=== PATIENT | female | born 1955 | race Caucasian/White ===

== ENCOUNTER 2016-08-13 21:41 | Emergency (ER) | payer MEDICARE, MEDICAID ==
[2016-08-13 22:01] VITALS: BP 135/63; PULSE 93; TEMP 97.9; BMI 28.0
--- NOTE | 2016-08-14 00:17 | EDPRACDOC ---
- General Information Information Source: Patient Home Medications: Home Medications Alprazolam [Xanax] 1 mg PO TID 03/17/13 Esomeprazole Mag Trihydrate [Nexium] 40 mg PO BID 03/17/13 Ropinirole HCl [Requip] 1 mg PO BID 03/17/13 Tiotropium [Spiriva Handihaler] 1 puff INH DAILY 03/17/13 Duloxetine [Cymbalta] 60 mg PO BID 08/28/13 Albuterol Sulfate [Proair Hfa] 1 - 2 puff INH Q4H PRN 04/30/14 Fluticasone Propionate [Flonase] 2 spray GENARO BID 04/30/14 Tramadol HCl [Ultram] 50 mg PO TID 07/03/14 Cyclobenzaprine HCl [Flexeril] 10 mg PO TID #10 tablet 05/19/16 Lisinopril [Zestril] 2.5 mg PO DAILY 05/19/16 Pentazocine HCl/Naloxone HCl [Talwin Nx Tablet] 1 each PO Q6 #10 tablet Pregabalin [Lyrica] 200 mg PO DAILY 05/19/16 Allergies/Adverse Reactions: Allergies Allergy/AdvReac Type Severity Reaction Status Date / Time prednisone [Prednisone] Allergy Unknown/See Verified 08/13/16 22:01 Comments Sulfa (Sulfonamide Allergy Unknown/See Verified 08/13/16 22:01 Antibiotics) Comments - History of Present Illness Onset: 2 DAYS HPI: PT PRESENTS TODAY WITH DOG SCRATCH TO RIGHT DORSAL FOREARM X 2 DAYS. WORRIED THAT ITS INFECTED. NO FEVER. - Tetanus Status Last Tetanus: No - Pain Pain Severity: None Bleeding: Reports: Controlled Associated Signs & Symptoms: Reports: Abrasion ED Past Medical History - History Reviewed Yes Nurses notes reviewed and agree except as marked - Patient Medical History Cardiac History: Reports: Hypertension Respiratory History: Reports: COPD GI/ History: Reports: Gastroesophageal Reflux Psychological History: Reports: Depression Additional Past Medical History: Fibromyalgia Surgical History: Reports: Cholecystectomy. Denies: Hysterectomy - Social Medical History Smoking Status: Heavy tobacco smoker (5 or more cigarettes/day or daily pipe/ cigar) EDM Review of Systems - Review of Systems ROS Negative Except as Marked: Yes All systems reviewed and were negative except as marked Constitutional: No Symptoms Reported Neurological: No Symptoms Reported Musculoskeletal: Forearm Integumentary: Wound - Physical Exam Constitutional: Alert (Awake), No apparent distress Oriented to: Time, Person, Place Last recorded Vital Signs: Last Vital Signs Temp 97.9 F 08/13/16 21:58 Pulse 93 08/13/16 21:58 Resp 20 08/13/16 21:58 BP 135/63 08/13/16 21:58 Pulse Ox 95 08/13/16 21:58 Oxygen Pulse Oxygen Saturation 95 O2 Device Room Air Oxygen Flow Rate Fraction of Inspired Oxygen ( FIO2) - HEENT Head: Normal Eye Exam: Normal Neck: Normal, Denies Pain, Midline - Respiratory/Cardiovascular Respiratory: Normal - CTA Cardiovascular: Normal - GI Palpation: Normal Tenderness: Non tender - Musculoskeletal Back: Normal Extremities: Other (NOTED IRREGULAR ABRASION TO RIGHT DORSAL FOREARM; ABOUT 2 CM TOTAL LENGTH; SCABBED OVER; LOCAL ERYTHEMA ONLY; NO SWELLING/DISCHARGE.) - Additional Information WOUND DRESSED WITH AVELYN AND NEOSPORIN. Decision Time to Discharge: 00:16 - Departure Disposition: Home Condition: Good Final Diagnosis: Abrasion Instructions: MRSA (Methicillin Resistant Staphylococcus Aureus) (ED) Education/Counseling Given To: Patient Education/Counseling Given Regarding: Diagnosis, Treatment, Follow Up Referrals: Josefina Reddy MD [Primary Care Provider] - One Week Additional Instructions: KEEP BANDAGE ON FOR 3 DAYS, THEN CHANGE
== END 2016-08-14 00:33 | disposition home or self-care (01) ==
LOC: ED 21:41
DX: S50.811A Abrasion of right forearm, initial encounter (principal); X58.XXXA Exposure to other specified factors, initial encounter; I10 Essential (primary) hypertension; J44.9 Chronic obstructive pulmonary disease, unspecified; K21.9 Gastro-esophageal reflux disease without esophagitis; F17.200 Nicotine dependence, unspecified, uncomplicated; Z79.899 Other long term (current) drug therapy
CPT/HCPCS: 99283

== ENCOUNTER 2016-08-29 19:45 | Emergency (ER) | payer MEDICARE, MEDICAID ==
[2016-08-29 19:51] VITALS: TEMP 98.3
[2016-08-29 20:01] VITALS: BMI 27.5
--- NOTE | 2016-08-29 20:46 | DIRPT ---
CLINICAL DATA: Back and neck pain EXAM: CERVICAL SPINE - COMPLETE 4+ VIEW COMPARISON: 04/30/2014 FINDINGS: Normal alignment of the cervical spine. The vertebral body heights are well preserved. Mild disc space narrowing and ventral spurring noted particularly at the C6-7 level. There is no fracture or dislocation identified. IMPRESSION: 1. Mild cervical spondylosis. 2. No acute findings. Electronically Signed By: Selene Santiago M.D. On: 08/29/2016 20:44
--- NOTE | 2016-08-29 20:47 | DIRPT ---
CLINICAL DATA: Posterior neck pain and thoracic back pain. Fall several months ago. EXAM: THORACIC SPINE 2 VIEWS COMPARISON: Lateral chest radiograph, 04/30/2014 FINDINGS: No fracture. No spondylolisthesis. Mild disc degenerative changes reflected by a loss of disc height and minor endplate osteophytes are noted along the mid and lower thoracic spine no bone lesion. Soft tissues are unremarkable. IMPRESSION: No fracture or acute finding. Mild degenerative changes. Electronically Signed By: Denys Yoon M.D. On: 08/29/2016 20:44
[2016-08-29] MEDS ORDERED: METHYLPREDNISOLONE 125 MG/2 ML VIAL IM ONE (21:05)
--- NOTE | 2016-08-29 21:10 | EDPRACDOC ---
- General Information Chief Complaint: Chest Wall Pain Stated Complaint: LEFT SHOULDER/ARM PAIN, CHEST CRAMPS Time Seen by Provider: 08/29/16 20:59 Information Source: Patient Mode Of Arrival: Car Home Medications: Home Medications Alprazolam [Xanax] 1 mg PO TID 03/17/13 Esomeprazole Mag Trihydrate [Nexium] 40 mg PO BID 03/17/13 Ropinirole HCl [Requip] 1 mg PO BID 03/17/13 Tiotropium [Spiriva Handihaler] 1 puff INH DAILY 03/17/13 Duloxetine [Cymbalta] 60 mg PO BID 08/28/13 Albuterol Sulfate [Proair Hfa] 1 - 2 puff INH Q4H PRN 04/30/14 Fluticasone Propionate [Flonase] 2 spray GENARO BID 04/30/14 Tramadol HCl [Ultram] 50 mg PO TID 07/03/14 Cyclobenzaprine HCl [Flexeril] 10 mg PO TID #10 tablet 05/19/16 Lisinopril [Zestril] 2.5 mg PO DAILY 05/19/16 Pentazocine HCl/Naloxone HCl [Talwin Nx Tablet] 1 each PO Q6 #10 tablet Pregabalin [Lyrica] 200 mg PO DAILY 05/19/16 Cyclobenzaprine HCl [Flexeril] 10 mg PO TID PRN #15 tablet 08/29/16 Hydrocodone Bit/Acetaminophen [Lortab 5/325] 1 tab PO Q4-6H PRN #15 tab Methylprednisolone [Medrol] 1 pack PO UNK #1 tab.ds.pk 08/29/16 Allergies/Adverse Reactions: Allergies Allergy/AdvReac Type Severity Reaction Status Date / Time prednisone [Prednisone] Allergy Unknown/See Verified 08/29/16 20:01 Comments Sulfa (Sulfonamide Allergy Unknown/See Verified 08/29/16 20:01 Antibiotics) Comments - History of Present Illness Onset: 1 WEEK HPI: Pt c/o neck and upper back pain radiating to L shoulder and hand with tingling intermittently. C/o sob, yellow productive cough, congestion, cramps in chest wall. Denies fever, earache, sore throat, abd pain, n/v, changes in bowel or bladder, rash. Pain Location: Reports: Left, Cervical, Thoracic Pain Radiates To: Reports: Arm, Shoulder, Neck Pain Caused By: Reports: Spontaneous Circumstances: Reports: Unknown Currently ?: No Pain Severity: Reports: Moderate Pain Quality: Reports: Aching Worsened By: Reports: Nothing Associated Signs and Symptoms: Reports: None ED Past Medical History - History Reviewed Yes Nurses notes reviewed and agree except as marked - Patient Medical History Cardiac History: Reports: Hypertension, Hypercholesterolemia Respiratory History: Reports: COPD GI/ History: Reports: Gastroesophageal Reflux Psychological History: Reports: Depression, Anxiety Additional Past Medical History: Fibromyalgia Surgical History: Reports: Cholecystectomy. Denies: Hysterectomy - Social Medical History Smoking Status: Heavy tobacco smoker (5 or more cigarettes/day or daily pipe/ cigar) ETOH: None Substance Abuse: None EDM Review of Systems - Review of Systems Constitutional: No Symptoms Reported. negative: Fever, Chills, Weakness, Fatigue, Loss of Appetite Ears: No Symptoms Reported. negative: Pain, Hearing Loss, Drainage, Ear Pulling Throat: No Symptoms Reported. negative: Pain, Swelling Nose: Congestion Mouth: No Symptoms Reported. negative: Pain, Drooling Respiratory: Cough, Shortness of Breath Cardiovascular: No Symptoms Reported. negative: Chest Pain, Palpitations, Syncope, Edema, Orthopnea, PND, Skin Mottling, Cyanosis Gastrointestinal: No Symptoms Reported. negative: Pain, Constipation, Nausea, Vomiting, Diarrhea, Melena, Formula Intolerance Genitourinary: No Symptoms Reported. negative: Dysuria, Hematuria, Frequency, Discharge, Bleeding, Testicular Pain, Neurological: Tingling Musculoskeletal: Arm, Back, Elbow, Forearm, Hand, Neck, Shoulder Integumentary: No Symptoms Reported. negative: Itching, Rash, Bruising, Wound Allergic/Immunologic: No Symptoms Reported. negative: Hives, Itching Hematologic: No Symptoms Reported. negative: Lymphadenopathy, Easy Bruising, Easy Bleeding Psychiatric: No Symptoms Reported. negative: Anxiety, Depression, Hallucinations, Insomnia, Suicidal - Physical Exam Constitutional: Alert Oriented to: Time, Person, Place Last recorded Vital Signs: Last Vital Signs Temp 98.3 F 08/29/16 19:50 Pulse 75 08/29/16 20:47 Resp 20 08/29/16 21:02 BP 118/59 L 08/29/16 20:47 Pulse Ox 91 08/29/16 20:47 Oxygen Pulse Oxygen Saturation 91 O2 Device Room Air Oxygen Flow Rate Fraction of Inspired Oxygen ( FIO2) - HEENT Head: Normal ( normocephalic) Eye Exam: Normal (PERRL, EOMI, Sclera white) Oropharynx: Normal (Pharynx:Moist without exudate,Gums-no swelling) Tympanic Membrane: Normal ENT EAC: Normal Nose: No Symptoms Reported (septum midline) Neck: Normal (FROM, trachea at midline), Paraspinal Tenderness - Respiratory/Cardiovascular Respiratory: Wheezes Cardiovascular: Normal (RRR without murmur, gallop or rub) - GI Auscultation: Normal (NABS) Palpation: Normal (Soft,No rebound or guarding, non distended) Tenderness: Non tender - Musculoskeletal Back: Thoracic TTP Extremities: Normal (Normal tone, Pulses 2+ No cyanosis or edema, FROM) - Integumentary Skin: Normal, Warm, Dry Lymphatics: Normal (no adenopathy) - Neurologic Memory Impaired: Normal Motor Function: Normal (Normal tone, Pulses 2+ No cyanosis or edema, FROM) Mood Description: Normal Perception: Normal ED Back Exam - Neurologic Motor Deficit: None (strength 5/5, sensation nl) Reflexes: Normal (CN II-X11 intact) - Musculoskeletal Cervical: Tender Thoracic: Tender Lumbar: Normal Midline: Normal Paraspinous: Tender Straight Leg Raise: Negative Pelvis: Normal - Differential Diagnosis DJD, Musculoskeletal pain, Other (cervical radiculopathy, pna, COPD), Strain - Re-evaluation Re-evaluation 1 Re-evaluation Time: 22:05 (no reaction from solumedrol) - Results 08/29/16 20:03 08/29/16 20:03 08/29/16 21:29 Laboratory Results - last 24 hr 08/29/16 08/29/16 20:03 20:03 WBC 8.4 RBC 3.99 L Hgb 11.9 L Hct 33.7 L MCV 84 MCH 29.7 MCHC 35.2 RDW 13.0 Plt Count 258 MPV 8.8 Neut % (Auto) 53.8 Lymph % (Auto) 37.2 [place] % (Auto) 4.8 Eos % (Auto) 3.4 Baso % (Auto) 0.8 Absolute Neuts (auto) 4.45 Absolute Lymphs (auto) 3.11 Sodium 132 L Potassium 3.6 Chloride 96 L Carbon Dioxide 25 Anion Gap 15 BUN 21 H Creatinine 1.10 H Estimated GFR (MDRD) 50 L Glucose 127 H Calculated Osmolality 260 L Calcium 9.4 Total Bilirubin 0.3 AST 25 ALT 30 Alkaline Phosphatase 94 Total Protein 7.3 Albumin 4.3 - EKG EKG #1 EKG Time: 19:54 Rate: bpm: 80 [place]: Normal Rhythm: NSR Block: None ST: Normal - Diagnostic Imaging T-Spine Image interpreted by: Radiologist IMPRESSION: No fracture or acute finding. Mild degenerative changes. C-spine Image interpreted by: Radiologist IMPRESSION: 1. Mild cervical spondylosis. 2. No acute findings. Chest Image interpreted by: Radiologist IMPRESSION: 1. No acute cardiopulmonary disease. 2. Advanced COPD. Decision Time to Discharge: 22:05 - Departure Disposition: Home Condition: Good Final Diagnosis: Cervical radiculopathy, COPD exacerbation Instructions: COPD (Chronic Obstructive Pulmonary Disease) (ED), Cervical Radiculopathy (ED) Education/Counseling Given To: Patient Education/Counseling Given Regarding: Diagnosis, Treatment, Follow Up Referrals: Josefina Reddy MD [Primary Care Provider] - One Week Prescriptions: New Cyclobenzaprine HCl [Flexeril] 10 mg PO TID PRN #15 tablet PRN Reason: Pain Hydrocodone Bit/Acetaminophen [Lortab 5/325] 1 tab PO Q4-6H PRN #15 tab PRN Reason: Pain Methylprednisolone [Medrol] 1 pack PO UNK #1 tab.ds.pk No Action Ropinirole HCl [Requip] 1 mg PO BID Alprazolam [Xanax] 1 mg PO TID Tiotropium [Spiriva Handihaler] 1 puff INH DAILY Esomeprazole Mag Trihydrate [Nexium] 40 mg PO BID Duloxetine [Cymbalta] 60 mg PO BID Fluticasone Propionate [Flonase] 2 spray GENARO BID Albuterol Sulfate [Proair Hfa] 1 - 2 puff INH Q4H PRN PRN Reason: Shortness Of Breath Tramadol HCl [Ultram] 50 mg PO TID Lisinopril [Zestril] 2.5 mg PO DAILY Pregabalin [Lyrica] 200 mg PO DAILY Cyclobenzaprine HCl [Flexeril] 10 mg PO TID #10 tablet Pentazocine HCl/Naloxone HCl [Talwin Nx Tablet] 1 each PO Q6 #10 tablet Additional Instructions: Return for worse or different symptoms.
[2016-08-29 21:16] LABS: AUTOMATED BASOPHIL 0.8 % (0-2); AUTOMATED EOSINOPHIL 3.4 % (0-5); AUTOMATED LYMPH 37.2 % (17-44); AUTOMATED MONOCYTE 4.8 % (3-10); AUTOMATED NEUTROPHIL 53.8 % (45-76); MPV 8.8 fL (7.4-10.4)
--- NOTE | 2016-08-29 21:16 | DIRPT ---
CLINICAL DATA: Mid chest cramping type pain extending under the left breast. Cough and shortness of breath for 3 weeks. EXAM: CHEST 2 VIEW COMPARISON: 04/30/2014 FINDINGS: Cardiac silhouette is normal in size and configuration. No mediastinal or hilar masses or evidence of adenopathy. Lungs are hyperexpanded. There changes of emphysema, most evident in the right upper lobe, stable. There stable lung scarring. No evidence of pneumonia or edema. No pleural effusion or pneumothorax. Bony thorax is demineralized but grossly intact. IMPRESSION: 1. No acute cardiopulmonary disease. 2. Advanced COPD. Electronically Signed By: Denys Yoon M.D. On: 08/29/2016 21:14
[2016-08-29 21:27] LABS: BLOOD UREA NITROGEN 21 MG/DL (7-17); CALCIUM 9.4 MG/DL (8.4-10.2); CALCULATED OSMOLALITY 260 MOs/Kg (270-290); CHLORIDE 96 mEq/L (98-107); GLUCOSE 127 mg/dL (70-99); SODIUM LEVEL 132 mEq/L (137-146); TOTAL PROTEIN 7.3 G/DL (6.3-8.2)
[2016-08-29 21:52] VITALS: BP 108/58; PULSE 73
== END 2016-08-29 22:16 | disposition home or self-care (01) ==
LOC: EDMC 19:45
DX: J44.1 Chronic obstructive pulmonary disease with (acute) exacerbation (principal); M54.12 Radiculopathy, cervical region
CPT/HCPCS: 36415; 71020; 72050; 72070; 80053; 85025; 93005; 96372; 99283; J2930